=== PATIENT | female | born 1965 | race Caucasian/White ===

== ENCOUNTER 2016-12-31 23:25 | Emergency (ER) | payer OTHER ==
--- NOTE | ~2016-12-31 | CT2 ---
[facility] A Service of [facility] RADIOLOGY TEXT RESULTS PATIENT: YUSUF YANES LOCATION: [facility] [place] : 63 UNIT #: [id number] AGE: [address]: Carlton Cerna MD SEX: F ORDER DR: [id number] [place] [id number] E MR#: [id number] Acc #: [id number] NAME: YUSUF YANES : 1965 SEX: F STUDY DATE/TIME: 01/01/2017 1:25 UNIT: SED ROOM: STUDY DESCRIPTION: CT Abd and Pelv W Cont Attending Physician: Carlton Cerna M.D. Ordering Physician: Carlton Cerna M.D. Primary Care Physician: Jorge Rm M.D. MEDICAL IMAGING REPORT This report is preliminary unless electronic signature is present. EXAM CT abdomen and pelvis INDICATION Mid abdominal pain and nausea for [address] of the abdomen and pelvis utilizing 100 mL Isovue-370 IV contrast. Coronal and sagittal reconstructions were obtained. This CT exam was performed with one or more of the following radiation dose reduction techniques: automatic exposure control, adjustment of mA and/or kV according to patient size, and iterative reconstruction. COMPARISON CT abdomen and pelvis dated 12/10/2014. FINDINGS ABDOMEN: The liver has morphologic features suggesting background cirrhosis. This is nonspecific. There is a calcified gallstone in the gallbladder. No gallbladder distension. The pancreas, spleen, adrenal glands, and kidneys are within normal limits. There is no hydronephrosis. There is a phlebolith immediately adjacent to the distal left ureter. This is unchanged from the prior study of 2015. The bowel is not dilated. The appendix is normal. There are some left-sided colonic diverticula. No diverticulitis. The abdominal aorta is normal in caliber. There is diastasis of the rectus abdominis muscles. PELVIS: There is a low-attenuation cystic mass in the left ovary [facility] A Service of [facility] RADIOLOGY TEXT RESULTS PATIENT: YUSUF YANES LOCATION: [facility] [place] : 63 UNIT #: [id number] AGE: [address]: Carlton Cerna MD SEX: F ORDER DR: compatible with a follicular cyst. This is decreased in size from prior study. Right ovary is not clearly identified. Uterus is unremarkable. Bladder is within normal limits. No enlarged pelvic or inguinal lymph nodes. No acute osseous abnormalities. IMPRESSION 1. No acute findings in the abdomen or pelvis. 2. Cholelithiasis. 2. Diverticulosis without evidence of acute diverticulitis. Dictated by... Wilmer Dow M.D. THIS IS AN ELECTRONICALLY VERIFIED REPORT Wilmer Dow M.D. at 01/01/2017 11:22 PM LATRICE/jovanni TD: 01/01/2017 04:24 JOB #: [id number] MEDICAL IMAGING REPORT Page 1 of 1
--- NOTE | ~2016-12-31 | EKG ---
PATIENT: YUSUF YANES UNIT #: [id number] Ventricular Rate: 84 BPM Atrial Rate: 84 BPM P-R Interval: 148 ms QRS Duration: 86 ms Q-T Interval: 394 ms QTC Calculation(Bezet): 465 ms P Reseda: 37 degrees Calculated R Reseda: 34 degrees Calculated T Reseda: 56 degrees Diagnosis Line: Normal sinus rhythm Diagnosis Line: Nonspecific T wave abnormality Diagnosis Line: Prolonged QT Diagnosis Line: Abnormal ECG Diagnosis Line: When compared with ECG of 04-JUL-2014 01:17, Diagnosis Line: No significant change was found Diagnosis Line: Confirmed by MICHELE AGUILLON MD ([id number]) on 01/02/2017 Diagnosis Line: 5:50:01 PM INTERPRETING MD: PAL LEONE
[~2016-12-31 23:25] MED LIST: ABILIFY PO; ALB/IPRATROPIUM/1 E1 INH; ALBUTEROL17 GM INH; AMBESOL; BACTRIM DS TABL1 TA2 PO; BENADRYL25 M3 PO; CIPRO PO; COMPAZINE10 M1 PO; DARVOCET-N 1001 TAB PO; DICLOFENAC PO; EXCEDRIN GELTAB1 TA1; FIORICET 50-321 EACH PO; FIORINAL CAPSUL1 CAP PO; FLEXERIL10 MG PO; FOLIC ACID1 MG PO; IBUPROFEN PO; IBUPROFEN800 MG PO; KEFLEX PO; KEFLEX500 M1 PO; KEFLEX500 MG PO; LASIX PO; LASIX20 MG; LASIX20 MG PO; LEVOXYL75 MC1 PO; LORTAB 10-5001 EACH PO; LORTAB 5/500 TA1 TA1 PO; NO MEDICATIONS; ORAJEL; ORUDIS75 M1 PO; PEN-VEE K PO; PHENERGAN PO; PHENERGAN25 M1 PO; POTASSIUM99 M2 PO; PREDNISONE PO; SIMVASTATIN20 MG; SUPRENZA ODT30 MG; SYMBICORT; SYMBICORT INH; SYNTHROID PO; TOPAMAX PO; TOPIRAGEN100 MG PO; TOPIRAMATE ER50 MG PO; VENTOLIN5 MG/ML; VICODIN 5/1 TAB 5/50 PO; VICODIN 5/500 T1 TAB PO; VICODIN PO; VITAMIN D2000 UNIT; VOLTAREN5 ML PO; VOLTAREN75 MG PO; ZOCOR PO
[2016-12-31] MEDS ORDERED: ADIPEX-P37.5 M1 PO (23:39)
[2016-12-31] MEDS ORDERED: LASIX PO (23:41)
[2017-01-01 00:06] LABS: BASOPHIL# 0.1 X10e3 (0-0.3); EOSINOPHIL# 0.2 X10e3 (0-0.7); EOSINOPHIL% 2.7 % (0.0-7.0); HEMATOCRIT 47.6 % (35.0-45.0); HEMOGLOBIN 15.9 gm/dL (12.0-16.0); LYMPHOCYTE% 33.2 % (17.0-45.0); MEAN CELL VOLUME 83.3 FL (83-96); MEAN CORPUSCULAR HEMOGLOBIN 27.8 PG (28-34); MEAN CORPUSCULAR HGB CONC 33.4 g/dL (30-36); MEAN PLATELET VOLUME 8.4 FL (6.5-11.5); MONOCYTE# 0.7 X10e3 (0-1.0); MONOCYTE% 8.1 % (3.0-12.0); NEUTROPHIL# 4.9 X10e3 (1.5-7.1); PLATELET COUNT 208 X10e3 (140-420); RED BLOOD COUNT 5.71 X10e (3.90-5.30); RED CELL DISTRIBUTION WIDTH 15.3 % (11.0-15.5); WHITE BLOOD COUNT 8.9 X10e3 (4.0-10.5)
[2017-01-01 00:11] LABS: DIFF IND NO
[2017-01-01 00:25] LABS: POC - TROPONIN <0.05 ng/mL (<=0.05)
[2017-01-01 00:33] LABS: ALKALINE PHOSPHATASE 50 U/L (32-92); ALT (SGPT) 19 U/L (10-40); AMYLASE 49 U/L (0-46); AST (SGOT) 19 U/L (10-42); BILIRUBIN, DIRECT <0.1 mg/dL (0.0-0.2); BILIRUBIN,INDIRECT 0.2 mg/dL (0.0-0.9); BILIRUBIN,TOTAL 0.3 mg/dL (0.2-2.0); BLOOD UREA NITROGEN 23 mg/dL (9-23); BUN/CREATININE RATIO 28.75; CALCIUM SERUM 8.5 mg/dL (8.4-10.2); CARBON DIOXIDE 23 mmol/L (22-31); CHLORIDE 109 mmol/L (100-111); CREATININE SERUM 0.8 mg/dL (0.6-1.4); GLOM FILT RATE Estimated 84.8 mL/min (>60); GLUCOSE FASTING 80 mg/dL (70-110); LIPASE 67 U/L (22-51); POTASSIUM 3.8 mmol/L (3.5-5.1); PROTEIN TOTAL SERUM 7.5 g/dL (6.0-8.3); SODIUM 135 mmol/L (135-145)
[2017-01-30] MEDS ORDERED: FUROSEMIDE40 MG PO (11:14)
[2017-01-30] MEDS ORDERED: ADIPEX-P37.5 M1 PO (11:35)
== END 2017-01-01 02:18 | disposition home or self-care (01) ==
LOC: SED 23:25
PROVIDERS: Emergency Medicine
DX: K80.80 Other cholelithiasis without obstruction (principal); E78.5 Hyperlipidemia, unspecified; J44.9 Chronic obstructive pulmonary disease, unspecified; F17.200 Nicotine dependence, unspecified, uncomplicated; Z98.890 Other specified postprocedural states; Z79.899 Other long term (current) drug therapy
CPT/HCPCS: 36415; 74177; 80048; 80076; 82150; 82553; 83690; 84484; 85025; 93005; 96374; 96375; 99284; J2270; J2405; Q9967

== ENCOUNTER → 2017-01-30 | Outpatient (CLI) | payer OTHER ==
[~2017-01-30] MED LIST changes: +ADIPEX-P37.5 M1 PO; +FUROSEMIDE40 MG PO
[2017-01-30 13:12] LABS: ALBUMIN SERUM 3.5 g/dL (3.5-5.0); BILIRUBIN,TOTAL 0.6 mg/dL (0.2-2.0); BUN/CREATININE RATIO 14.44; CALCIUM SERUM 8.8 mg/dL (8.4-10.2); CREATININE SERUM 0.9 mg/dL (0.6-1.4); GLOM FILT RATE Estimated 73.6 mL/min (>60); PROTEIN TOTAL SERUM 7.1 g/dL (6.0-8.3)
== END | disposition home or self-care (01) ==
LOC: CAMB 10:57 → EDSTATUS 11:00 → CAMB 11:00
PROVIDERS: Specialist
DX: Z01.812 Encounter for preprocedural laboratory examination (principal)
CPT/HCPCS: 36415; 80053

== ENCOUNTER → 2017-02-04 | Day surgery (SDC) | payer OTHER ==
--- NOTE | ~2017-02-04 | OR ---
Unit #: [id number] #: [id number] Patient: YUSUF YANES [id number] [address] [address] [id number] O MR#: [id number] NAME: YUSUF YANES ROOM: Date of Procedure: 02/04/2017 Admission Date: 02/04/2017 Surgeon: Jackson Martin M.D. : 1965 Attending Physician: Jackson Martin M.D. Primary Care Physician: Iván Coelho M.D. OPERATIVE REPORT PREOPERATIVE DIAGNOSES Chronic cholecystitis and cholelithiasis. POSTOPERATIVE DIAGNOSES Chronic cholecystitis and cholelithiasis. PROCEDURE PERFORMED Laparoscopic cholecystectomy. ANESTHESIA General endotracheal anesthesia. ESTIMATED BLOOD LOSS Less than 10 mL. INDICATIONS FOR PROCEDURE A 51-year-old female with postprandial nausea and right upper quadrant pain on an episodic basis. Ultrasound revealed a large obstructing stone with normal biliary ductal system. Preoperative liver chemistries were normal. DESCRIPTION OF PROCEDURE The patient was admitted to [facility], positively identified, and transported to the operating room, and after induction of general endotracheal anesthesia, she was prepped and draped in usual sterile fashion. A 5-mm supraumbilical incision made. Veress needle was placed. Pneumoperitoneum was created. Then, a 5-mm trocar was placed. Laparoscope was introduced into the peritoneal cavity. Under direct vision, the epigastric and lateral ports were placed. The dome of the gallbladder was grasped and elevated. Adhesions were taken down by sharp and blunt dissection until the infundibulum could be identified. The infundibulum was retracted laterally and the triangle of Calot was dissected out clearly identifying the cystic duct, gallbladder, and cystic duct-common duct junction and the posteriorly placed cystic artery. A single clip was placed in the cystic duct centered to gallbladder and then three clips were placed distally and the cystic duct was sharply divided. Posteriorly, the cystic artery was doubly clipped proximally and distally and divided. I then dissected the gallbladder from the liver bed using cautery dissection. Once it was freed up from its hepatic attachments, it was brought out through the epigastric port. There was good hemostasis. The clips were well positioned. The epigastric fascial defect was closed with the neoClose device and the closure was airtight. I then reduced Unit #: [id number] #: [id number] Patient: YUSUF YANES pneumoperitoneum as I removed the laparoscope and trocars. 0.5% Marcaine with epinephrine was infiltrated in each trocar site. The skin was closed with 4-0 Monocryl subcuticular closure and Dermabond skin adhesive. Sponges and needle counts were correct x3. The patient tolerated the procedure well and was transported to recovery in stable condition. Findings and postoperative instructions were discussed with the patient and the patient's family. Dictated by... Tawana Mo/abhishek TD: 02/04/2017 18:50 JOB #: [id number] OPERATIVE REPORT Page 1 of 1 X Jackson Martin MD PROCEDURE OPERATIVE NOTE
== END | disposition home or self-care (01) ==
LOC: CSUR 12:49
PROVIDERS: Specialist
PROC: 0FT44ZZ Resection of Gallbladder, Percutaneous Endoscopic Approach (ICD-10-PCS; principal; 2017-02-04 15:30)
DX: K80.10 Calculus of gallbladder with chronic cholecystitis without obstruction (principal); E03.9 Hypothyroidism, unspecified; E78.00 Pure hypercholesterolemia, unspecified; K21.9 Gastro-esophageal reflux disease without esophagitis; J45.909 Unspecified asthma, uncomplicated; G43.909 Migraine, unspecified, not intractable, without status migrainosus; G47.30 Sleep apnea, unspecified; Z87.891 Personal history of nicotine dependence; Z79.899 Other long term (current) drug therapy; Z79.891 Long term (current) use of opiate analgesic; Z87.09 Personal history of other diseases of the respiratory system; Z80.0 Family history of malignant neoplasm of digestive organs; Z83.42 Family history of familial hypercholesterolemia; Z83.3 Family history of diabetes mellitus; Z83.6 Family history of other diseases of the respiratory system; Z82.49 Family history of ischemic heart disease and other diseases of the circulatory system
CPT/HCPCS: 84703; 88304; J0131; J0690; J3010

== ENCOUNTER → 2017-04-03 | Outpatient (CLI) | payer OTHER ==
--- NOTE | ~2017-04-03 | CR169 ---
[facility] A Service [facility] RADIOLOGY TEXT RESULTS PATIENT: YUSUF YANES LOCATION: [facility] : 63 UNIT #: [id number] AGE: [address]: Iván Coelho MD SEX: F ORDER DR: [id number] [place] [id number] O MR#: [id number] Acc #: [id number] NAME: YUSUF YANES : 1965 SEX: F STUDY DATE/TIME: 04/03/2017 9:59 UNIT: SRAD ROOM: STUDY DESCRIPTION: CR Knee 2 Views Lt Attending Physician: Iván Coelho M.D. Referring Physician: Iván Coelho M.D. Ordering Physician: Iván Coelho M.D. Primary Care Physician: Iván Coelho M.D. MEDICAL IMAGING REPORT This report is preliminary unless electronic signature is present. EXAM Left knee 04/03/2017 HISTORY 51-year-old female with left knee pain for 2 weeks. No specific injury. COMPARISON None. FINDINGS Two views of the left knee demonstrate no acute fracture or dislocation. No significant joint effusion. Moderate degenerative change patellofemoral joint. Severe medial compartment joint space narrowing. Mild lateral compartment joint space narrowing. IMPRESSION 1. No acute fracture or dislocation. 2. Tricompartmental arthrosis, most severe in the medial compartment and patellofemoral joint. Dictated by... Fercho Toro M.D. THIS IS AN ELECTRONICALLY VERIFIED REPORT Fercho Toro M.D. at 04/04/2017 4:57 PM KYLEE/isa TD: 04/03/2017 22:52 JOB #: [id number] [facility] A Service [facility] RADIOLOGY TEXT RESULTS PATIENT: YUSUF YANES LOCATION: [facility] : 63 UNIT #: [id number] AGE: [address]: Iván Coelho MD SEX: F ORDER DR: MEDICAL IMAGING REPORT Page 1 of 1
== END | disposition home or self-care (01) ==
LOC: SRAD 09:55
DX: M25.562 Pain in left knee (principal); M17.12 Unilateral primary osteoarthritis, left knee
CPT/HCPCS: 73560

== ENCOUNTER → 2017-04-21 | Outpatient (CLI) | payer MEDICARE ==
--- NOTE | ~2017-04-21 | MR103 ---
[facility] A Service of [facility] RADIOLOGY TEXT RESULTS PATIENT: YUSUF YANES LOCATION: [facility] : 63 UNIT #: [id number] AGE: [address]: Kasie Logan SEX: F ORDER DR: [id number] [address] [address] [id number] O MR#: [id number] Acc #: [id number] NAME: YUSUF YANES. : 1965 SEX: F STUDY DATE/TIME: 04/21/2017 8:58 UNIT: [facility] ROOM: STUDY DESCRIPTION: MR Knee Wo Contrast Lt Attending Physician: Kasie Logan P.A.-C. Referring Physician: Kasie Logan P.A.-C. Ordering Physician: Kasie Logan P.A.-C. Primary Care Physician: Iván Coelho M.D. MRI CENTER REPORT This report is preliminary unless electronic signature is present. EXAM MRI of the left knee without contrast HISTORY 51-year-old female complains of posterior medial left knee pain for several years, worse over the last 2 months. History of osteoarthritis. COMPARISON Left knee films 04/03/2017 TECHNIQUE Multiplanar multiecho imaging was performed of the left knee utilizing a high field magnet dedicated protocol. FINDINGS Examination demonstrates increased T2 marrow signal about the knee most likely reflecting red marrow hyperplasia and may be related to body habitus. Minimal knee effusion. 11 mm loose body noted within the posterior aspect of the lateral compartment adjacent to the PCL. Grade 4 chondromalacia noted along the weightbearing aspect of the medial compartment with areas of grade 4 chondromalacia measuring over a centimeter within the medial tibial plateau and medial femoral condyle. Small amount of subjacent marrow edema. Diffuse degenerative tear of the medial meniscus with medial extrusion of the meniscus. The lateral compartment of the meniscus and articular cartilage appears intact. In the patellofemoral compartment there is [id number] grade chondromalacia lateral patellar facet. Small focus of moderate-grade chondromalacia within the lateral femoral trochlea. Anterior, posterior cruciate ligaments appear intact. The collateral ligaments and extensor mechanism unremarkable. STS. [facility] A Service of [facility] & [facility] RADIOLOGY TEXT RESULTS PATIENT: YUSUF YANES LOCATION: [facility] : 63 UNIT #: [id number] AGE: [address]: Kasie Logan SEX: F ORDER DR: IMPRESSION 1. Degenerative arthropathy of the left knee predominately involving the medial and patellofemoral compartment with a sizeable foci of grade 4 chondromalacia medial femoral condyle and medial tibial plateau. 2. Minimal knee effusion and a sizeable 11 mm loose body posterior aspect of the lateral compartment. 3. Diffuse degenerative tear medial meniscus. Dictated by... Enma Elder M.D. THIS IS AN ELECTRONICALLY VERIFIED REPORT Enma Elder M.D. at 04/24/2017 2:35 PM VELMA/sunshine TD: 04/22/2017 18:03 JOB #: [id number] MRI CENTER REPORT Page 1 of 1
== END | disposition home or self-care (01) ==
LOC: SMRI 08:27
DX: M17.12 Unilateral primary osteoarthritis, left knee (principal); M23.42 Loose body in knee, left knee
CPT/HCPCS: 73721